=== PATIENT | female | born 1945 | race Caucasian/White ===

== ENCOUNTER → 2018-11-06 | Outpatient (CLI) | payer MEDICARE, OTHER ==
--- NOTE | 2018-11-06 10:45 | RAD ---
EXAM DESCRIPTION: Hip,Left 2 Views (accession [id number]), Pelvis (accession [id number]) CLINICAL HISTORY: 73 years, Female, LEFT HIP PAIN COMPARISON: 11/15/2015 TECHNIQUE: Two views of the left hip and single frontal view of the pelvis was obtained. FINDINGS/IMPRESSION: Images of the left hip and pelvis demonstrate no acute displaced fracture or dislocation. Changes of left total hip arthroplasty in stable osseous alignment without hardware fracture or hardware complication. Mild bony demineralization at the left acetabulum. Mild degenerative changes of the left greater than right sacroiliac joints and symphysis pubis. Moderate degenerative changes at the lumbosacral junction. Electronically signed by: Mau Rocha DO 11/06/2018 10:43 AM CDT
--- NOTE | 2018-11-06 10:45 | RAD ---
EXAM DESCRIPTION: Hip,Left 2 Views (accession [id number]), Pelvis (accession [id number]) CLINICAL HISTORY: 73 years, Female, LEFT HIP PAIN COMPARISON: 11/15/2015 TECHNIQUE: Two views of the left hip and single frontal view of the pelvis was obtained. FINDINGS/IMPRESSION: Images of the left hip and pelvis demonstrate no acute displaced fracture or dislocation. Changes of left total hip arthroplasty in stable osseous alignment without hardware fracture or hardware complication. Mild bony demineralization at the left acetabulum. Mild degenerative changes of the left greater than right sacroiliac joints and symphysis pubis. Moderate degenerative changes at the lumbosacral junction. Electronically signed by: Mau Rocha DO 11/06/2018 10:43 AM CDT
== END ==
LOC: RAD 08:22
PROVIDERS: ATTEND Orthopaedic Surgery
DX: M47.898 Other spondylosis, sacral and sacrococcygeal region (principal); M47.897 Other spondylosis, lumbosacral region; Z96.642 Presence of left artificial hip joint

== ENCOUNTER → 2019-02-05 | Outpatient (CLI) | payer MEDICARE ==
--- NOTE | 2019-02-05 13:47 | MRI ---
MRI left hip without contrast minimal artifact reduction protocol INDICATION: Hip pain previous surgery TECHNIQUE: MR imaging left hip without contrast metal artifact reduction protocol FINDINGS: Advanced degenerative disc disease L5-S1. Previous left hip arthroplasty. Mild interstitial partial tears of the proximal hamstring tendons with hypertrophic enthesophytes of the ischial tuberosities. No evidence of pseudotumor. No definite osteolysis loosening or fracture. No sacral fracture or sacroiliitis. Mild right greater trochanteric bursal edema. No large pseudobursal collection. IMPRESSION: Bilateral hamstring tendinopathy and mild chronic proximal partial tears without detachment or retraction Ischial tuberosity enthesophyte formation Mild trochanteric bursal edema right Degenerative disease L5-S1 Electronically signed by: Marcellus Ramos MD 02/05/2019 1:45 PM [facility]
== END ==
LOC: MRI 11:08
PROVIDERS: ATTEND Orthopaedic Surgery
DX: S76.312A Strain of muscle, fascia and tendon of the posterior muscle group at thigh level, left thigh, initial encounter (principal); M51.37 Other intervertebral disc degeneration, lumbosacral region; M76.892 Other specified enthesopathies of left lower limb, excluding foot; R60.0 Localized edema